=== PATIENT | male | born 1995 | race Caucasian/White ===

== ENCOUNTER 2020-02-17 12:40 | Outpatient (REF) | payer OTHER, SELFPAY ==
[2020-02-17 14:47] LABS: Cholesterol 218 mg/dL; HDL Cholesterol 44 mg/dL; LDL Cholesterol Calculated 149 mg/dl; Triglycerides 127 mg/dL
== END 2020-02-17 12:41 | disposition home or self-care (01) ==
LOC: HO.10HDL 12:40
PROVIDERS: Visit Provider Internal Medicine
DX: E78.00 Pure hypercholesterolemia, unspecified (principal)
CPT/HCPCS: 80061

== ENCOUNTER 2020-11-12 22:37 | Outpatient (REF) | payer OTHER, SELFPAY ==
[2020-11-12 23:36] LABS: Influenza A PCR NEGATIVE (Negative); Influenza B PCR NEGATIVE (Negative); Resp Syncy Virus RNA Qual PCR NEGATIVE (Negative); SARS COV2 PCR INHOUSE NEGATIVE (Negative)
== END 2020-11-12 22:38 | disposition home or self-care (01) ==
LOC: HO.LAB 22:37
PROVIDERS: Internal Medicine; Visit Provider Internal Medicine
DX: Z20.822 Contact with and (suspected) exposure to COVID-19 (principal)
CPT/HCPCS: 0241U; 36415

== ENCOUNTER 2020-11-25 09:04 | Outpatient (REF) | payer OTHER, SELFPAY ==
[2020-11-25 10:23] LABS: Influenza A PCR NEGATIVE (Negative); Influenza B PCR NEGATIVE (Negative); Resp Syncy Virus RNA Qual PCR NEGATIVE (Negative); SARS COV2 PCR INHOUSE NEGATIVE (Negative)
== END 2020-11-25 09:05 | disposition home or self-care (01) ==
LOC: HO.LNP 09:04
PROVIDERS: Visit Provider Internal Medicine
DX: Z20.822 Contact with and (suspected) exposure to COVID-19 (principal)
CPT/HCPCS: 0241U

== ENCOUNTER 2021-03-28 10:42 | Outpatient (REF) | payer OTHER, SELFPAY ==
[2021-03-28 11:43] LABS: Influenza A PCR NEGATIVE (Negative); Influenza B PCR NEGATIVE (Negative); Resp Syncy Virus RNA Qual PCR NEGATIVE (Negative); SARS COV2 PCR INHOUSE NEGATIVE (Negative)
== END 2021-03-28 10:43 | disposition home or self-care (01) ==
LOC: HO.LNP 10:42
PROVIDERS: Visit Provider Internal Medicine
DX: Z20.822 Contact with and (suspected) exposure to COVID-19 (principal)
CPT/HCPCS: 0241U

== ENCOUNTER 2021-07-20 09:55 | Outpatient (REF) | payer OTHER, SELFPAY ==
[2021-07-20 10:15] LABS: COVID-19 Test Positive (Negative)
== END 2021-07-20 09:56 | disposition home or self-care (01) ==
LOC: HO.LNP 09:55
PROVIDERS: Visit Provider Internal Medicine
DX: Z20.822 Contact with and (suspected) exposure to COVID-19 (principal)
CPT/HCPCS: 87635

== ENCOUNTER 2022-03-10 08:13 | Outpatient (REF) | payer OTHER, SELFPAY ==
[2022-03-10 10:39] LABS: MANUAL DIFF FLAG NO
[2022-03-10 10:47] LABS: Basophils Percent Auto 0.5 % (0-2); Eosinophils Absolute Auto 0.2 X10*3/uL (0.0-0.4); Eosinophils Percent Auto 2.4 % (0-4); Hematocrit 48.4 % (42.0-52.0); Hemoglobin 16.5 g/dl (14.0-18.0); Imm Gran Abs Auto 0.03 X10*3/uL (0.00-0.03); Imm Gran Pct Auto 0.4 % (0.0-0.4); Lymphocytes Absolute Auto 1.7 X10*3/uL (1.2-4.9); Lymphocytes Percent Auto 21.9 % (20-40); Mean Corpuscular HGB Conc 34.1 g/dl (31.0-36.0); Mean Corpuscular Hemoglobin 29.3 pg (27.0-33.0); Mean Corpuscular Volume 85.8 fL (80.0-98.0); Mean Platelet Volume 9.8 fL (9.4-12.4); Monocytes Absolute Auto 0.6 X10*3/uL (0.1-1.2); Monocytes Percent Auto 8.1 % (2-11); Neutrophils Absolute Auto 5.3 x10*3/uL (2.0-8.3); Neutrophils Percent Auto 66.7 % (45-73); Platelet Count 297 X10*3/uL (160-400); Red Blood Count 5.64 X10*6/uL (4.60-5.80); White Blood Count 7.9 X10*3/uL (4.8-10.8)
[2022-03-10 11:12] LABS: Alanine Aminotransferase 39 U/L (0-40); Albumin Level 4.5 g/dL (3.5-5.0); Alkaline Phosphatase 61 U/L (39-117); Anion Gap 11 (12-20); Aspartate Amino Transferase 26 U/L (5-37); Bilirubin Total 1.2 mg/dL (0.0-1.0); Blood Urea Nitrogen 13 mg/dL (9-16); Calcium 9.4 mg/dL (8.4-10.2); Carbon Dioxide 31 mmol/L (22-29); Chloride 102 mmol/L (96-108); Cholesterol 252 mg/dL; Estimated Glomerular Filt Rate > 60; Glucose Fasting 82 mg/dL (60-99); HDL Cholesterol 45 mg/dL; LDL Cholesterol Calculated 171 mg/dl; Potassium 4.4 mmol/L (3.3-5.1); Sodium 140 mmol/L (135-145); Total Protein 7.3 g/dL (6.5-8.0); Triglycerides 182 mg/dL
== END 2022-03-10 08:14 | disposition home or self-care (01) ==
LOC: HO.10HDL 08:13
PROVIDERS: Visit Provider Internal Medicine
DX: Z00.00 Encounter for general adult medical examination without abnormal findings (principal)
CPT/HCPCS: 36415; 80053; 80061; 85025

== ENCOUNTER 2023-10-01 16:28 | Outpatient (REF) | payer OTHER, SELFPAY ==
--- NOTE | ~2023-10-01 | XR_ITS ---
EXAMINATION: XR CHEST CLINICAL INFORMATION: Patient states cough for 2 weeks. COMPARISON: 11/24/2016. TECHNIQUE: 2 views of the chest were obtained. FINDINGS: There is no gross pneumothorax. Heart size is normal. No pleural effusion. No new focal consolidation to suggest pneumonia. XR/XR chest 2V IMPRESSION: No evidence of pneumonia.
== END 2023-10-01 16:29 | disposition home or self-care (01) ==
LOC: HO.XRAY 16:28
PROVIDERS: PCP Internal Medicine; Visit Provider Internal Medicine
DX: R10.13 Epigastric pain (principal); R05.9 Cough, unspecified
CPT/HCPCS: 71046

== ENCOUNTER 2024-11-24 15:11 | Outpatient (AMB) | payer OTHER, SELFPAY ==
--- NOTE | 2024-11-24 15:14 | A.OFFPC_ITS ---
Vital Signs 11/24/24 15:20 Height 5 ft 7 in Weight 73.936 kg BMI 25.5 BP 112/70 Blood Pressure Location Lt brachial Position Sitting Respiration 18 Pulse 71 Pulse Source Pulse Oximeter Temp 98.5 F Temp Source Temporal Artery Scan Pulse Oximetry (%) 99 Oxygen Delivery Method Room Air Intake Visit Reasons: annual exam Histologic Aide Required: No Accompanied by: Self / Same As Patient Allergies No Known Allergies Allergy (Verified 11/24/24 15:24) Tobacco use date assessed: 11/24/24 Dental Screening Dental Screen Date: 11/24/24 Did you have a dental visit in the last 12 months?: Yes Did you have a dental problem in the last 6 months where you did not have access to dental care?: No Was dental information given to patient?: No HPI HPI Comments History of Present Illness Details 29-year-old male with history of dandruf f and hyperlipidemia presents to the office today to establish care and for annual physical exam. He currently lives with his split between [place] and [place] due to his work schedule. 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 Denies any alcohol use, cigarette smoking, drug use including marijuana. He does exercise occasionally, mostly cardio, endorses that he could be exercising more. He does follow healthy diet overall. Hyperlipidemia-previously on a statin. Last LDL in 2021 was 170. Lost a significant amount of weight with improvement Concerns: None Health Maintenance: Colonoscopies to start at age 43 No recent eye exam. Wears corrective lenses Dentist twice yearly No skin check in several years, does wear sunscreen. FH melanoma paternal aunt ROS: General: No fevers, malaise, unintentional weight loss HEENT: No blurred vision, diplopia. No sore throat, nasal congestion, rhinorrhea, sinus pain, ear pain. No hearing loss Neck - no adenopathy Cardiovascular: No chest pain, palpitations, or leg edema Respiratory: No shortness of breath, wheezing, cough GI: No dysphagia, odynophagia, globus sensation. No abdominal pain, nausea, vomiting, diarrhea, constipation, melena, hematochezia : No dysuria, hematuria, increased urinary frequency, decreased urinary output. No testicular swelling or pain. No penile discharge MSK: No myalgia, back pain, arthralgias Neuro: No headaches, weakness, paresthesias Psych: no depression/anxiery. No AH/VH. No SI/HI Skin: No rashes or lesions EXAM: Constitutional - Awake and Alert, No apparent distress Eyes - PERRLA, EOMI. Anicteric Ears - external ears normal, canals clear, TMs intact and pearly metz with good cone of light Nose- septum midline, nares clear, no sinus tenderness Mouth/throat- mucosa moist, tongue and uvula midline, no erythema/edema or tonsillar adenopathy. Neck-trachea midline, thyroid symmetric without palpable nodules, no adenopathy Cardiovascular - S1S2, RRR, No edema Respiratory - Normal lung expansion, Normal respiratory effort, No respiratory distress, CTA bilaterally Gastrointestinal - NT / ND; +BS; No rebound or guarding - No CVA tenderness Extremities - no calf tenderness bilaterally, no swelling Musculoskeletal - Normal inspection, normal ROM Skin - Warm/Dry, no concerning lesions Neurological - Alert & oriented x3, CN II-XII in tact, 5/5 strength BUE and BLE, 2+ patellar reflexes, sensation intact Psychological - Appropriate affect [facility] Medical History (Updated 11/24/24 @ 15:52 by PRASHANT Montenegro) Hyperlipidemia Dandruff Surgical History (Updated 11/24/24 @ 15:37 by PRASHANT [place]ro) No pertinent past surgical history Family History (Updated 11/24/24 @ 15:38 by PRASHANT [place]) Mother Throat cancer Hypothyroidism Father HLD (hyperlipidemia) Paternal Grandmother Lung cancer Maternal Grandfather Stomach cancer Social History Housing: House Patient Tobacco Use Status: Never used Tobacco e-Cigarette/Vaping Use: Never Used service: No Current occupational status: employed Cognitive needs: No Hearing needs: No Vision needs: Yes (Near sided) Questionnaire PHQ-9 Over the last 2 weeks, how often have you been bothered by any of the following problems? 1. Little interest or pleasure in doing things: not at all 2. Feeling down, depressed, or hopeless: not at all 3. Trouble falling or staying asleep, or sleeping too much: not at all 4. Feeling tired or having little energy: not at all 5. Poor appetite or overeating: not at all 6. Feeling bad about yourself - or that you are a failure or have let yourself or your family down: not at all 7. Trouble concentrating on things, such as reading the newspaper or watching television: not at all 8. Moving or speaking so slowly that other people could have noticed. Or the opposite - being so fidgety or restless that you have been moving around a lot more than usual: not at all 9. Thoughts that you would be better off or of hurting yourself in some way: not at all Total score: 0 Source: Developed by Drs. Darren Fernández, Rosamaria Salazar, Aron Anaya and colleagues, with an educational quintin from [employer]. Thrive Questionnaire Date Thrive assessed: 11/24/24 I am a: Patient What is your living situation today?: I have a steady place to live Within the past 12 months, did the food you bought not last and you didn't have the money to get more?: Never true Within the past 12 months, did you worry whether your food would run out before you got money to buy more?: Never true Do you have trouble paying for medicines?: No Do you have trouble getting transportation to medical appointments?: No Do you have trouble paying your heating and electricity bill?: No Do you have trouble taking care of your child, family member or friend?: No Do you have trouble with day-to-day activities such as bathing, preparing meals, shopping, managing finances, etc.?: No Are you currently unemployed and looking for a job?: No Are you interested in more education?: No Please select the resources that you would like help with: None THRIVE Score: 0 DIAMOND-7 AMB Questionnaire DIAMOND-7 Date DIAMOND - 7 assessed: 11/24/24 Feeling nervous, anxious, or on edge: 0 = Not at all Not being able to stop or control worryin = Not at all Worrying too much about different things: 0 = Not at all Trouble relaxin = Not at all Being so restless that it is hard to sit still: 0 = Not at all Becoming easily annoyed or irritable: 0 = Not at all Feeling afraid as if something awful might happen: 0 = Not at all Total DIAMOND-7 score (0-4 normal; 5-9 mild; 10-14 moderate; 15-21 severe): 0 Source: Developed by Drs. Darren Fernández, Rosamaria Salazar, Aron Anaya and colleagues, with an educational quintin from [employer]. Physical exam (Primary Care) Vital Signs: Last Vital Signs Temp 98.5 F 11/24/24 15:20 Pulse 71 11/24/24 15:20 Resp 18 11/24/24 15:20 BP 112/70 11/24/24 15:20 Pulse Ox 99 11/24/24 15:20 Oxygen Delivery Method Room Air 11/24/24 15:20 BMI result Body Mass Index 25.5 Tobacco/Smoking Status: Tobacco use Status Tobacco use date assessed 11/24/24 11/24/24 15:26 Patient Tobacco Use Status Never used Tobacco 11/24/24 15:26 e-Cigarette/Vaping Use Never Used 11/24/24 15:26 PHQ-9: PHQ-9 Score PHQ-9: Total score 0 11/24/24 15:28 Thrive Assessment: Date of Thrive Assessment Date Thrive assessed 11/24/24 11/24/24 15:28 Coding Level of Care Code New Pt Prev Care 18-39yr([id number] Diagnoses Encounter for routine history and physical examination Z00.00 Hyperlipidemia E78.5 Assessment & Plan Assessment & Plan (1) Encounter for routine history and physical examination: Code(s): Z00.00 - Encounter for general adult medical examination without abnormal findings Plan: 29-year-old male presenting for annual physical exam. Overall found to be in a good general state of health (2) Hyperlipidemia: Code(s): E78.5 - Hyperlipidemia, unspecified Category: Medical Plan: Lipid panel ordered. Recommend diet low in saturated fats and highly processed foods. Plan Routine screening labs as ordered below Colonoscopies is started age 45 Continue following for annual skin exams and use sun protection Annual eye exams Wear seat belt in car Recommend regular exercise and healthy diet Follow up in 1 year Orders: Orders Lipid Panel Today Z00.00 - Encounter for general adult medical examination without abnormal findings Liver Panel Today Z00.00 - Encounter for general adult medical examination without abnormal findings Basic Metabolic Panel Today Z00.00 - Encounter for general adult medical examination without abnormal findings Complete Blood Count Auto Diff Today Z00.00 - Encounter for general adult medical examination without abnormal findings
[2024-11-24 15:20] VITALS: BP 112/70; PULSE 71; RESP 18; TEMP 36.9; O2SAT 99; BMI 25.5
== END 2024-11-24 15:49 | disposition home or self-care (01) ==
LOC: HO.HMCHD 15:11
PROVIDERS: PCP Physician Assistant; Visit Provider Physician Assistant
DX: Z00.00 Encounter for general adult medical examination without abnormal findings (principal); E78.5 Hyperlipidemia, unspecified